=== PATIENT | female | born 1970 | race American Indian/Alaskan Native ===

== ENCOUNTER 2020-05-02 12:03 | Emergency (ER) | payer OTHER ==
--- OUTSIDE RECORDS SUMMARY | 2020-05-02 12:05 | XMS REPORT | Clinical Summary ---
:1970 Author Organization [facility] Address [address] [place] [address] Care Team Providers Name Role Phone Anand Khun MD Primary Care Provider Allergies Active Allergy Reactions Severity Noted Date Comments Nsaids (Non-Steroidal Hives 09/23/2019 Pt sta jaelyn she cannot have Anti-Inflammatory Drug) any NSAIDs because of lovenox. Medications Medication Sig Dispensed Refills Start Date End Date Status buPROPion XL Take 450 mg by 0 Ac tive (WELLBUTRIN XL) 300 mouth daily. MG 24 hr tablet topiramate (TOPAMAX) Take 200 mg by 0 Active 200 MG tablet mouth 2 (two) times a day. Extended release citalopram (CeleXA) Take 10 mg by 0 Active 10 MG tablet mouth daily. tiZANidine (ZANAFLEX) Take 2 mg by 0 Active 2 MG tablet mouth every 8 (eight) hours as needed for muscle spasms. butalbital-acetaminop Take 1 tablet 0 Active hen-caff (FIORICET, by mouth every ESGIC) 50-325-40 mg 6 (six) hours per tablet as needed for headaches. erenumab-aooe Inject 140 mg 0 Ac tive (Aimovig under the skin Autoinjector) 140 every 28 days. mg/mL syringe enoxaparin (LOVENOX) Inject under 0 Active 150 mg/mL injection the skin every 12 (twelve) hours. ondansetron ODT Take 1 tablet 10 tablet 0 09/23/2019 Active (Zofran ODT) 4 MG (4 mg total) by disintegrating tablet mouth every 12 (twelve) hours as needed for nausea or vomiting. butalbitaL-acetaminop Take 1 capsule 12 capsule 0 09/23/2019 0 09/30/2019 -caf-cod (Fioricet by mouth every with Codeine) 6 (six) hours 01-345-17-30 mg as needed capsuleIndications: (headache) for acute pain up to 7 days .acute pain. Active Problems Problem Noted Date Acute deep vein thrombosis (DVT) of popliteal vein 04/2018 Pulmonary embolus 05/15/2017 Encounters Date Type Specialty Care Team Description 03/23/2020 Hospital Encounter Radiology Randall Garland, Encounter for MD screening mammogram Juan, for malignant Solange, neoplasm of lily ast FOREIGN DIPLOMAT 03/23/2020 Travel 03/10/2020 Travel 03/10/2020 Transcribe Orders Access Juan, Encounter for Solange, screening mammo gram FOREIGN DIPLOMAT for malignant neoplasm of lily ast (Primary Dx) 09/23/2019 - Emergency Emergency Medicine Thacker, Boi Intractab le episodic 09/24/2019 MD Clarice headache, unspecified hea dache type (Primary D x) 09/23/2019 Travel after 05/02/2019 Surgical History Surgery Date Site/Laterality Comments GASTRIC BYPASS TONSILLECTOMY Medical History Medical History Date Comments Depression Anxiety DVT (deep venous thrombosis) (HCC) Migraines PE (pulmonary thromboembolism) ([facility]) Social History Tobacco Use Types Packs/Day Years Used Date Light Tobacco Smoker Smokeless Tobacco: Never Used Alcohol Use Drinks/Week oz/Week Comments No Sex Assigned at Date Recorded Not on file Job Start Date Occupation Industry Not on file Not on file Not on file Last Filed Vital Signs Vital Sign Reading Time Taken Comments Blood Pressure 107/65 09/24/2019 12:01 AM CDT Pulse 74 09/24/2019 12:01 AM CDT Temperature 37.1 C (98.8 F) 09/24/2019 12:01 AM CDT Respiratory Rate 16 09/24/2019 12:01 AM CDT Oxygen Saturation 98% 09/24/2019 12:01 AM CDT Inhaled Oxygen Concentration - - Weight 103 kg (228 lb) 09/23/2019 9:19 PM CDT Height 175.3 cm (5' 9") 09/23/2019 9:19 PM CDT Body Mass Index 33.67 09/23/2019 9:19 PM CDT Plan of Treatment Health Maintenance Due Date Last Done Comments COVID-19 VACCINE (#1) 1986 CERVICAL CANCER SCREENING 12/09/1991 INFLUENZA VACCINE 12/05/2019 Procedures Procedure Name Priority Date/Time Associated Comments Diagnosis MAMMO BREAST SCREEN Routine 03/23/2020 5:37 Encounter for Res ults for this TOMOSYNTHESIS BILATERAL PM [employer] screening proc edure are in mammogram for the results malignant neoplasm section. of breast CT HEAD WO CONTRAST STAT 09/23/2019 10:36 Resu lts for this PM CDT procedure are i n the results section. ESTIMATED GFR STAT 09/23/2019 9:50 Results fo r this PM CDT procedure are i n the results section. HCG QUALITATIVE, SERUM Routine 09/23/2019 9:50 R esults for this SCREEN PM CDT procedure are i n the results section. PARTIAL THROMBOPLASTIN STAT 09/23/2019 9:50 R esults for this TIME (PTT) PM CDT procedure are i n the results section. PROTHROMBIN TIME WITH STAT 09/23/2019 9:50 Re sults for this INR PM CDT procedure are i n the results section. COMPREHENSIVE METABOLIC STAT 09/23/2019 9:50 Results for this PANEL PM CDT procedure are i n the results section. HC COMPLETE BLD COUNT Routine 09/23/2019 9:50 Re sults for this W/AUTO DIFF PM CDT procedure are i n the results section. after 05/02/2019 Results Mammo Breast Screen Tomosynthesis Bilateral (03/23/2020 5:37 PM [employer]) Specimen Impressions Performed At There is no mammographic evidence of mal ignancy. [facility] Continued monitoring of the clinical examination and annual mammography in 1 year is recommended. BI-RADS Category 1: Negative Workstation Name: [id number] A NEGATIVE X-RAY REPORT SHOULD NOT DELAY BIOPSY IF A D OMINANT OR CLINICALLY SUSPICIOUS MASS IS PRESENT. NOT ALL CANCERS ARE IDENTIFIED BY X-RAY. Narrative Performed At PROCEDURE: [facility] Bilateral Tomosynthesis Screening HISTORY: Patient is 49 years old and is seen for screening. The patient has the following family history of breast cancer: paternal aunt, breast cancer. The patient has no current palpa ble breast complaints. FILMS COMPARED: The present examination has been compared to a prior [facility] dated 01/12/2019. MAMMOGRAM FINDINGS: The breasts are almost entirely fat. No suspicious masses, calcifications or other abnormal ities are seen. There are no significant changes from the prior study. Procedure Note Interface, Radiology Results Incoming - 03/23/2020 6:31 PM [employer] PROCEDURE: Bilateral Tomosynthesis Screening HISTORY: Patient is 49 years old and is seen for screening. The patient has the following family history of breast cancer: paternal aunt, breast cancer. The patient has no current palpable breast complaints. FILMS COMPARED: The present examination has been compare d to a prior imaging study dated 01/12/2019. MAMMOGRAM FINDINGS: The breasts are almost entirely fat. No suspicious masses, calcifications or other abnormalities are seen. There are no significant changes from the prior study. IMPRESSION: There is no mammographic evidence of mal ignancy. Continued monitoring of the clinical exa mination and annual mammography in 1 year is recommended. BI-RADS Category 1: Negative Workstation Name: [id number] A NEGATIVE X-RAY REPORT SHOULD NOT DELAY BIOPSY IF A DOMINANT OR CLINICALLY SUSPICIOUS MASS IS PRESENT. NOT ALL CANCERS ARE IDENTIFIED BY X-RAY. Performing Organization Address City/State/ZIP Code Phon e Number [facility] [id number] [place] [address] CT Head Wo Contrast (09/23/2019 10:36 PM CDT) Specimen Narrative Performed At EXAM: CT HEAD WO CONTRAST [facility] CLINICAL HISTORY: headache patient on lovenox TECHNIQUE: Noncontrast enhanced images of the brain we re obtained from the skull base to the vertex. Both soft tissue and bon e reconstruction algorithms were performed. CT scans are performed using radiation dose reduction techniques (iterative reconstruction and/or automated exposure co ntrol). Technical factors are evaluated and adjusted to ensure appropria te moderation of exposure. Automated dose project management consultant nology is applied to adjust radiation exposure while achievi ng a diagnostic quality image. COMPARISON: CT head 03/20/2012. FINDINGS: The davey-white matter differentiation is preserved and without evidence of acute territorial infarction. There is no evidence for acute intracranial hemorrhage , mass, mass effect, hydrocephalus, or extra-axial fl uid collection. The ventricles and sulci are appropriate for age. Orbits are unremarkable. Mild mucosal thickening in th e left sphenoid sinus dependently is noted. Mastoid air cells are norm ally pneumatized. Osseous structures are intact. IMPRESSION: No CT evidence for acute intracranial ab normality. [id number] Procedure Note Hm Interface, Radiology Results Incoming - 09/23/2019 10:45 PM CDT EXAM: CT HEAD WO CONTRAST CLINICAL HISTORY: headache patient on l ovenox TECHNIQUE: Noncontrast enhanced images o f the brain were obtained from the skull base to the vertex. Both soft tissue and bone reconstruction algorithms were performed. CT scans are performed using radiation d ose reduction techniques (iterative reconstruction and/or automated exposure control). Technical factors are evaluated and adjusted to ensure appropriate moderation of exposure. Automated dose project management consultant nology is applied to adjust radiation exposure while achieving a diagnostic quality image. COMPARISON: CT head 03/20/2012. FINDINGS: The davey-white matter differentiation is preserved and without evidence of acute territorial infarction. There is no evidence for acute intracran ial hemorrhage, mass, mass effect, hydrocephalus, or extra-axial fluid collection. The ventricles and sulci are appropriate for age. Orbits are unremarkable. Mild mucosal th ickening in the left sphenoid sinus dependently is noted. Mastoid air cells are normally pneumatized. Osseous structures are intact. IMPRESSION: No CT evidence for acute intracranial ab normality. [id number] Performing Organization Address City/[facility] Code Phon e Number [facility] [id number] [place] [address] Estimated GFR (09/23/2019 9:50 PM CDT) Pathologist [facility] Estimated GFR 77 mL/min/1.73 [facility] Comment: [address] Catergory Units Interpretation G1 >=90 Normal or high G2 60-89 Mildly decreased G3a 45-59 Mildly to moderately decreas ed G3b 30-44 Moderately to severely decre ased G4 15-29 Severely decreased G5 <15 Kidney failure The eGFR was calculated using the Chronic Kidney Disea se Epidemiology Collaboration (CKD-EPI) equation. Interpretation is based on recommendations of the National Kidney Foundation-Kidney Disease Outcomes Evaristo lity Initiative (NKF-KDOQI) published in 2014. Specimen Performing Organization Address City/State/ZIP Code Phon e Number [facility] DEPARTMENT OF PATHOLOGY AND [address] [place], [place] [address] [facility]IC [facility]IC[facility] [address] [address] [place], [place] [address] Partial thromboplastin time, activated (09/23/2019 9:50 PM CDT) PTT 32.8 23.0 - 36.0 [facility] Comment: [facility] PTT therapeutic range for unfractionated heparin is 61.0-112.0 seconds which corresponds to Anti-Xa 0.3-0.7 U/ml. Specimen Blood Performing Organization Address City/State/ZIP Code Phon e Number [facility] DEPARTMENT OF PATHOLOGY AND [id number] [place] [address] [facility] [address] [place], [place] [address] Prothrombin time with INR (09/23/2019 9:50 PM CDT) [facility] Prothrombin time 13.5 11.5 - 14.5 [facility] INR 1.0 [place] Comment: [facility] Normalized Ratio (INR) is a therapeu [facility] monitoring tool for patients who are stable on oral anticoagulant therapy. An INR of 2.0-3.0 is suggested for deep vein thrombosis/pulmonary embolism. Specimen Blood Performing Organization Address City/[facility] Phon e Number [facility] DEPARTMENT OF PATHOLOGY AND [address] [address] [facility] [place]. [place] [address] [address] [facility] [address] [place], [place] [address] CBC with platelet and differential (09/23/2019 9:50 PM CDT) [facility] WBC 7.18 4.50 - 11.00 [facility] k/uL [facility] RBC 4.45 4.20 - 5.50 m/uL [facility] HGB 13.1 12.0 - 16.0 g/dL [facility] HCT 39.3 37.0 - 47.0 % [facility] MCV 88.3 82.0 - 100.0 fL [facility] MCH 29.4 27.0 - 34.0 pg [facility] MCHC 33.3 31.0 - 37.0 g/dL [facility] RDW - SD 45.6 37.0 - 55.0 fL [facility] MPV 10.2 8.8 - 13.2 fL [facility] Platelet count 341 150 - 400 k/uL [facility] Neutrophils 50.2 39.0 - 69.0 % [facility] Lymphocytes 38.7 25.0 - 45.0 % [facility] Monocytes 6.0 0.0 - 10.0 % [facility] Eosinophils 4.2 0.0 - 5.0 % [facility] Basophils 0.6 0.0 - 1.0 % [facility] Immature granulocytes 0.3 0.0 - 1.0 % [facility] Specimen Blood Performing Organization Address City/[facility]/ZIP Code Phon e Number [facility] DEPARTMENT OF PATHOLOGY AND [address] [address] [place] [address] GENOMIC MEDICINE [facility] [address] [place], [place] [address] hCG qualitative, serum screen (09/23/2019 9:50 PM CDT) Pathologist [facility] hCG qualitative, NegativeComment: [facility] serum Sensitivity of HCG [facility] test: 25 mIU/mL Specimen Blood Performing Organization Address City/[facility] Phon e Number [facility] DEPARTMENT OF PATHOLOGY AND [address] [facility] [address] [facility] [address] [place], [place] [address] Comprehensive metabolic panel (09/23/2019 9:50 PM CDT) [facility] Sodium 139 135 - 148 [facility] mEq/L [facility] Potassium 4.2 3.5 - 5.0 [facility] mEq/L [facility] Chloride 103 99 - 109 mEq/L [facility] CO2 20 (L) 24 - 31 mEq/L [facility] Anion gap 16@ANIO (H) 7 - 15 mEq/L [facility] BUN 9 8 - 24 mg/dL [facility] Creatinine 0.88 0.50 - 0.90 [facility] mg/dL [facility] Glucose 138 (H) 65 - 99 mg/dL [facility] Calcium 9.2 8.6 - 10.6 [facility] mg/dL [facility] Protein 7.4 6.3 - 8.2 g/dL [facility] Albumin 3.6 3.5 - 5.0 g/dL [facility] A/G ratio 0.9 0.7 - 3.8 [facility] Alkaline phosphatase 62 30 - 115 U/L [facility] AST 18 15 - 46 U/L [facility] ALT 14 10 - 55 U/L [facility] Total bilirubin <0.3 0.2 - 1.2 [facility] mg/dL [facility] Specimen Blood Performing Organization Address City/State/ZIP Code Phon e Number [facility] DEPARTMENT OF PATHOLOGY AND [address] [place] 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
--- OUTSIDE RECORDS SUMMARY | 2020-05-02 12:06 | XMS REPORT | Continuity of Care Document ---
:1970 Author Organization [facility] t Address [address] [place] [address] Care Team Providers Name Role Phone Bam AIKEN, K. Primary Care Physician Gill AIKEN Attending Clinician Juan [employer] Attending Clinician Clarice Thacker MD Attending Clinician Payers Payer Name Policy Type Policy Effective Date Expiration Date Sour ce Number [facility] [id number] 2017 [place] CHOICE 00:00:00 [facility] MARKETPLACExxxxxx [id number] 2017-Pr esentExchange Problems Condition Condition Condition Status Onset Resolution Last Treating Co mments Source Name Details Category Date Date Treatment Clinician Date Acute deep Acute deep Disease Active [place] vein vein 1-12 [facility] thrombosis thrombosis 00:00: st (DVT) of (DVT) of 00 popliteal popliteal vein vein Pulmonary Pulmonary Disease Active Omari ston embolus embolus 1-10 [facility] 00:00: st 00 Allergies, Adverse Reactions, Alerts Allergy Allergy Status Severity Reaction(s) Onset Inactive Treating Comm ents Source Name Type Date Date Clinician Nsaids Propensi Active Hives Pt states [place] (Non-Kiran ty to 5-20 she [facility] roidal adverse 00:00: cannot st Anti-Inf reaction 00 have any lammator s to NSAIDs y Drug) drug because of lovenox. Social History Social Habit Start Date Stop Date Quantity Comments Source Sex Assigned At [facility] ethodist Tobacco use and 2019-09-23 2019-09-23 Never used [facility] ethodist exposure 00:00:00 00:00:00 Alcohol intake 2019-09-23 2019-09-23 Current [facility] thodist 00:00:00 00:00:00 non-drinker of alcohol (finding) Smoking Status Start Date Stop Date Source Light tobacco smoker 2019-09-23 00:00:00 [place] [facility] Medications Ordered Filled Start Stop Current Ordering Indication Dosage Frequency Signature Comments Components Source Medication Medication Date Date Medication? Clinician (SIG) Name Name erenumab-ao 2019- Yes 140mg Q28D Inject 140 [place] oe (Aimovig 5-20 mg under Meth ansley Autoinjecto 21:31: the skin st r) 140 12 every 28 mg/mL days. syringe enoxaparin 2020-0 Yes Q12H Inject [place] (LOVENOX) 5-20 under the Metho di 150 mg/mL 21:31: skin every st injection 12 12 (twelve) hours. ondansetron 2019-0 Yes 4mg Q12H Take 1 [place] ODT (Zofran 5-20 tablet (4 Met h[facility] ODT) 4 MG 00:00: mg total) st disintegrat 00 by mouth ing tablet every 12 (twelve) hours as needed for nausea or vomiting. butalbitaL- 2020- No acute pain 1{capsu Q6H Take 1 [place] acetaminop- 5-20 05-27 le} capsule by esequiel caf-cod 00:00: 23:[address] (Fioricet 00 :00 every 6 with (six) Codeine) hours as 50-300-40-3 needed 0 mg (headache) capsule for up to 7 days .acute pain. buPROPion 2018-0 Yes 450mg QD Take 450 [place] ston XL 1-12 mg by [facility] (WELLBUTRIN 17:52: mouth st XL) 300 MG 53 daily. 24 hr tablet topiramate 2018-0 Yes 200mg Q.5D Take 200 [place] (TOPAMAX) 1-12 mg by [facility] 200 MG 17:52: mouth 2 st tablet 53 (two) times a day. Extended release citalopram 2017- Yes 10mg QD Take 10 mg [place] (CeleXA) 10 1-12 by mouth Meth ansley MG tablet 17:52: daily. st 53 tiZANidine 2018-0 Yes 2mg Q8H Take 2 mg [place] (ZANAFLEX) 1-12 by mouth Metho di 2 MG tablet 17:52: every 8 st 53 (eight) hours as needed for muscle spasms. butalbital- 2018-0 Yes 1{tbl} Q6H Take 1 [place] acetaminoph 1-12 tablet by Met hodi en-caff 17:52: mouth st (FIORICET, 53 every 6 ESGIC) (six) 50-325-40 hours as mg per needed for tablet headaches. Vital Signs Vital Name Observation Time Observation Value Comments Source Systolic blood 2019-09-24 00:01:00 107 mm[Hg] Lauro Prescott pressure Diastolic blood 2019-09-24 00:01:00 65 mm[Hg] Rich Prescott pressure Heart rate 2019-09-24 00:01:00 74 /min Eric Prescott Body temperature 2019-09-24 00:01:00 37.11 Puja Sarwat Prescott Respiratory rate 2019-09-24 00:01:00 16 /min Sarwat Prescott Oxygen saturation in 2019-09-24 00:01:00 98 /min Eric Prescott Arterial blood by Pulse oximetry Body height 2019-09-23 21:19:00 175.3 cm Eric Prescott Body weight 2019-09-23 21:19:00 103.42 kg Eric Prescott BMI 2019-09-23 21:19:00 33.67 kg/m2 Eric Prescott Procedures Procedure Date / Time Performing Clinician Source Performed MAMMO BREAST SCREEN 2020-03-23 17:37:41 Bruha, Solange Eric Prescott TOMOSYNTHESIS BILATERAL CT HEAD WO CONTRAST 2019-09-23 22:36:52 Dk Stewart HC COMPLETE BLD COUNT 2019-09-23 21:50:00 Dk Stewart W/AUTO DIFF COMPREHENSIVE METABOLIC 2019-09-23 21:50:00 Dk Stewart PANEL PROTHROMBIN TIME WITH INR 2019-09-23 21:50:00 Dk Stewart PARTIAL THROMBOPLASTIN 2019-09-23 21:50:00 Terry, Dk S. [place] [facility] TIME (PTT) HCG QUALITATIVE, SERUM 2019-09-23 21:50:00 Dk [place] [facility] SCREEN ESTIMATED GFR 2019-09-23 21:50:00 Dk Stewart Eric Meth odist Plan of Care Planned Activity Planned Date Details Comments Source Future Scheduled 2019-12-05 INFLUENZA VACCINE [place] [facility] Test 00:00:00 [code = INFLUENZA VACCINE] Future Scheduled 1991-12-09 Screening for [place] [facility] thodist Test 00:00:00 malignant neoplasm of cervix (procedure) [code = 146138944] Future Scheduled 1986 COVID-19 VACCINE [place] [facility] Test 00:00:00 (#1) [code = COVID-19 VACCINE (#1)] Encounters Start End Encounter Admission Attending Care Care Encounter Source Date/Time Date/Time Type Type Clinicians Facility Department ID 2020-03-23 2020-03-23 Outpatient ROBBY POTTER [facility] [id number] [place] 00:00:00 00:00:[address] 2019-09-23 2019-09-24 Emergency THACKER, BOI [facility] [id number] [place] 00:00:00 00:00:[address] Results Test Description Test Time Test Comments Results Result [facility] e Comments Mammo Breast 2020-03-06 There is no [place] Screen 8 mammographic Y[facility]idi Tomosynthesis 18:30:52 evidence of Bilateral malignancy. Continued monitoring of the clinical examination and annual mammography in 1 year is recommended. BI-RADS Category 1:Negative Workstation Name: [id number] A NEGATIVE X-RAY REPORT SHOULD NOT DELAY BIOPSY IF A DOMINANT OR CLINICALLY SUSPICIOUS MASS IS PRESENT. NOT ALL CANCERS ARE IDENTIFIED BY X-RAY. [facility], Radiology Results - 03/23/2020 6:31 PM CSTPROCEDURE:Bilater al Tomosynthesis Screening HISTORY:Patient is 49 years old and is seen for screening. The patient has the following family history of breast cancer: paternal aunt, breast cancer. The patient has no current palpable breast complaints. FILMS COMPARED:The present examination has been compared to a prior imaging study dated 01/12/2019. MAMMOGRAM FINDINGS:The breasts are almost entirely fat. No suspicious masses, calcifications or other abnormalities are seen. There are no significant changes from the prior study. IMPRESSION:There is no mammographic evidence of malignancy. Continued monitoring of the clinical examination and annual mammography in 1 year is recommended. BI-RADS Category 1:Negative Workstation Name: [id number] A NEGATIVE X-RAY REPORT SHOULD NOT DELAY BIOPSY IF A DOMINANT OR CLINICALLY SUSPICIOUS MASS IS PRESENT. NOT ALL CANCERS ARE IDENTIFIED BY X-RAY. CT Head Wo 2019-09-05 [facility] Contrast 0 Radiology Results Methodi 22:42:29 Incoming - 09/23/2019 10:45 PM CDTEXAM: CT HEAD WO CONTRASTCLINICAL HISTORY: headache patient on lovenoxTECHNIQUE: Noncontrast enhanced images of the brain were obtained from the skull base to the vertex. Both soft tissue and bone reconstruction algorithms were performed. CT scans are performed using radiation dose reduction techniques (iterative reconstruction and/or automated exposure control). Technical factors are evaluated and adjusted to ensure appropriate moderation of exposure. Automated dose management technology is applied to adjust radiation exposure while achieving a diagnostic quality image.COMPARISON: CT head 03/20/2012.FINDINGS: The davey-white matter differentiation is preserved and without evidence of acute territorial infarction. There is no evidence for acute intracranial hemorrhage, mass, mass effect, hydrocephalus, or extra-axial fluid collection.The ventricles and sulci are appropriate for age.Orbits are unremarkable. Mild mucosal thickening in the left sphenoid sinus dependently is noted. Mastoid air cells are normally pneumatized. Osseous structures are intact.IMPRESSION:No CT evidence for acute intracranial abnormality.[facility]-[id number] Comprehensive metabolic panel 2019-09-23 22:35:41 Test Item Value Reference Range Interpretation Comme nts Sodium (test code = 2951-2) 139 135- 148 mEq/L Potassium (test code = 2823-3) 4.2 3.5- 5.0 mEq/L Chloride (test code = 2075-0) 103 99- 109 mEq/L CO2 (test code = 2027-9) 20 24- 31 mEq/L L Anion gap (test code = 78021-2) 16@ANIO 7- 15 mEq/L H BUN (test code = 3094-0) 9 mg/dL 8-24 Creatinine (test code = 2160-0) 0.88 mg/dL 0.5-0.9 Glucose (test code = 2345-7) 138 mg/dL 65-99 H Calcium (test code = 00734-6) 9.2 mg/dL 8.6-10.6 Protein (test code = 2885-2) 7.4 g/dL 6.3-8.2 Albumin (test code = 1751-7) 3.6 g/dL 3.5-5 A/G ratio (test code = 1759-0) 0.9 0.7-3.8 Alkaline phosphatase (test code = 6768-6) 62 U/L 30-115 AST (test code = 1920-8) 18 U/L 15-46 ALT (test code = 1742-6) 14 U/L 10-55 Total bilirubin (test code = 1974-2) <0.3 0.2-1.2 Lab Interpretation (test code = 48636-3) Abnormal Reyes MethodistEstimated [id number] 22:35:41 Test Item Value Reference Range Interpretation Comments Estimated GFR (test 77 mL/min/1.73 m2 Caterg ory Units code = 5488) InterpretationG 1 >=90 Normal or highG2 60-89 Mildly sjrlgsujuZ5q 45-59 Mildly to mode rately mkindsdmiX4r 30-44 Moderately to severely decreasedG4 15-29 Severely decre asedG5 <15 Kidn ey failureThe eGFR was calculated usin g the Chronic Kidney Disease Epidemiology Co llaboration (CKD-EPI) equat ion. Interpretation is based on recommendations of the National Kidney Foundation-Kidn ey Disease Outcomes Qualit y Initiative (NKF-KDOQI) pub lished in 2014. Reyes MethodistPartial thromboplastin time, [id number] 22:22:28 Test Item Value Reference Range Interpretation Comments PTT (test code = 32.8 23.0- 36.0 sec PTT thera peutic range for 3173-2) unfractionated heparin is61.0-112.0 se conds which corresponds to Anti-Xa0.3-0.7 U/ml. Reyes MethodistProthrombin time with [id number] 22:22:18 Test Item Value Reference Range Interpretation Comments Prothrombin time (test 13.5 11.5- 14.5 sec code = 5902-2) INR (test code = 1.0 The Interna tional 49829-2) Normalized Rati o (INR) is a therapeutic m onitoring tool for patien ts who are stable on oral anticoagulant t herapy. An INR of 2.0-3.0 is suggested for d eep vein thrombosis/pulm onary embolism. Eric PrescotthCG qualitative, serum [id number] 22:21:03 Test Item Value Reference Range Interpretation Comments hCG qualitative, Negative Sensitivity of HCG test: serum (test code = 25 mIU/mL 8-8) Eric PrescottCBC with platelet and [id number] 22:17:34 Test Item Value Reference Range Interpretation Comments WBC (test code = 75444-9) 7.18 4.50- 11.00 k/uL RBC (test code = 98380-2) 4.45 m/uL 4.2-5.5 HGB (test code = 718-7) 13.1 g/dL 12-16 HCT (test code = 4544-3) 39.3 % 37-47 MCV (test code = 787-2) 88.3 fL 82-100 MCH (test code = 785-6) 29.4 pg 27-34 MCHC (test code = 786-4) 33.3 g/dL 31-37 RDW - SD (test code = 46477-1) 45.6 fL 37-55 MPV (test code = 22537-4) 10.2 fL 8.8-13.2 Platelet count (test code = 341 150- 400 k/uL 22558-0) Neutrophils (test code = 90860-3) 50.2 % 39-69 Lymphocytes (test code = 79569-8) 38.7 % 25-45 Monocytes (test code = 05665-7) 6.0 % 0-10 Eosinophils (test code = 19919-3) 4.2 % 0-5 Basophils (test code = 33805-9) 0.6 % 0-1 Immature granulocytes (test code = 0.3 % 0-1 23721-7) Eric Prescott
[2020-05-02] MEDS ORDERED: HYDROCODONE/APAP 5/325 MG TAB ONE ×2 (12:43→14:01)
--- NOTE | 2020-05-02 12:53 | RAD REPORT ---
EXAM DESCRIPTION: US - Extremity Venous Uni Ltd - 05/02/2020 12:39 pm CLINICAL HISTORY: PAIN, swelling, history of DVT COMPARISON: None. TECHNIQUE: Real-time sonographic evaluation of the left lower extremity deep venous system was perfo rmed. FINDINGS: Normal compressibility, flow augmentation, phasic flow and spontaneous flow are identified in the left lower extremity common femoral, superficial femoral, popliteal and posterior tibial vein s. No intraluminal filling defects seen. IMPRESSION: No DVT in the left lower extremity.
[2020-05-02 14:12] LABS: Absolute Lymphocytes (CBC) 2.1 K/uL (0.7-4.9); Basophils % 0.5 % (0-1.3); Hematocrit 40.4 % (36.0-45.0); Lymphocytes % 28.9 % (15.3-44.8); MPV 8.1 fL (7.6-11.3); RBC Red Blood Cell Count 4.46 M/uL (3.86-4.86)
--- NOTE | 2020-05-02 14:56 | EDPHYS ---
Physician Documentation [facility] Name: Claudia Parkinson Age: 49 yrs Sex: Female : 1970 Arrival Date: 05/02/2020 Time: 12:05 Bed 14 Private MD: ED Physician Heraclio Anna HPI: 05/02 12:58 This 49 yrs old Other Female presents to ER via EMS with complaints of Leg Pain. pm1 12:58 The complaints affect the proximal and lateral aspect of left calf. Context: The pm1 problem was sustained at an unknown site, resulted from an unknown cause, the patient can fully bear weight, the patient is able to ambulate, Problem is a result from a previous injury: No. Onset: The symptoms/episode began/occurred 3 week(s) ago. Modifying factors: The symptoms are alleviated by nothing. the symptoms are aggravated by nothing. Associated signs and symptoms: Pertinent negatives calf tenderness, numbness, tingling, shortness of breath, chest pain. Severity of symptoms: in the emergency department the symptoms are unchanged. Patient diagnosed with superficial blood clot to proximal lateral left lower leg 2-3 weeks ago with U/S. Patient had a DVT 2017 and has been taking lovenox sq since then. Her dosage was cut in half but resumed full dosage 2-3 weeks ago due to superficial blood clot. Historical: - Allergies: 12:09 No Known Allergies; em - PMHx: 12:09 DVT; PE; em - PSHx: 12:09 gastric sleeve; em - Immunization history:: Adult Immunizations up to date. - Social history:: Smoking status: Patient denies any tobacco usage or history of. ROS: 12:58 Constitutional: Negative for fever, chills, and weight loss, Cardiovascular: Negative pm1 for chest pain, palpitations, and edema, Respiratory: Negative for shortness of breath, cough, wheezing, and pleuritic chest pain, Abdomen/GI: Negative for abdominal pain, nausea, vomiting, diarrhea, and constipation, Back: Negative for injury and pain. 12:58 Skin: Negative for injury, rash, and discoloration, Neuro: Negative for headache, weakness, numbness, tingling, and seizure. 12:58 MS/extremity: Positive for pain, of the proximal lateral aspect of left calf, Negative for injury or acute deformity, decreased range of motion, deformity. Exam: 12:58 Constitutional: This is a well developed, well nourished patient who is awake, alert, pm1 and in no acute distress. Head/Face: Normocephalic, atraumatic. 12:58 Back: No spinal tenderness. No costovertebral tenderness. Full range of motion. Skin: Warm, dry with normal turgor. Normal color with no rashes, no lesions, and no evidence of cellulitis. 12:58 Cardiovascular: Exam negative for acute changes, Rate: normal, Rhythm: regular, Pulses: no pulse deficits are appreciated. 12:58 Respiratory: Exam negative for acute changes, respiratory distress, shortness of breath. 12:58 Musculoskeletal/extremity: Extremities: grossly normal except: noted in the proximal lateral aspect of left calf: tenderness, There is no evidence of swelling, Pulses: noted to be 2+ in the left popliteal artery and left dorsalis pedis artery, the left foot Sensation intact. 12:58 Neuro: Exam negative for acute changes, Orientation: is normal, Mentation: is normal, Motor: is normal, moves all fours. Vital Signs: 12:05 BP 108 / 80; Pulse 90; Resp 18; Temp 98.4; Pulse Ox 98% on R/A; Weight 104.33 kg; em Height 5 ft. 9 in. (175.26 cm); Pain 6/10; 13:30 BP 109 / 77; Pulse 77; Resp 18; Pulse Ox 99% on R/A; Pain 6/10; em 14:30 BP 110 / 71; Pulse 72; Resp 18; Pulse Ox 98% on R/A; em 12:05 Body Mass Index 33.96 (104.33 kg, 175.26 cm) em MDM: 12:08 Patient medically screened. pm1 14:55 Data reviewed: vital signs. Data interpreted: Pulse oximetry: on room air is 99 %. pm1 Interpretation: normal. Counseling: I had a detailed discussion with the patient and/or guardian regarding: the historical points, exam findings, and any diagnostic results supporting the discharge/admit diagnosis, lab results, radiology results, the need for outpatient follow up, to return to the emergency department if symptoms worsen or persist or if there are any questions or concerns that arise at home. 05/02 13:28 Order name: CBC with Diff; Complete Time: 14:16 pm1 12/28 13:28 Order name: BMP; Complete Time: 14:55 pm1 05/02 12:16 Order name: Extremity Venous Uni Ltd ; Complete Time: 12:58 pm1 Administered Medications: 12:53 Drug: [place] 5 mg-325 mg 1 tabs Route: PO; em 13:40 Follow up: Response: No adverse reaction; No change in condition; RASS: Alert and Calm em (0) 13:49 Drug: [place] 5 mg-325 mg 1 tabs Route: PO; em 15:01 Follow up: Response: No adverse reaction; Marked relief of symptoms; Pain is decreased; em RASS: Alert and Calm (0) Disposition: 15:49 Co-signature as Attending Physician, Heraclio Anna MD. rn Disposition: 05/02/20 14:56 Discharged to Home. Impression: Pain in left lower leg. - Condition is Stable. - Discharge Instructions: Musculoskeletal Pain. - Prescriptions for Tylenol- Codeine #3 300-30 mg Oral Tablet - take 2 tablets by ORAL route every 6 hours As needed; 20 tablet. - Medication Reconciliation Form, Thank You Letter, Antibiotic Education, Prescription Opioid Use form. - Follow up: Emergency Department; When: As needed; Reason: Worsening of condition. Follow up: Private Physician; When: 2 - 3 days; Reason: Recheck today's complaints, Continuance of care, Re-evaluation by your physician. - Problem is new. - Symptoms have improved. Signatures: Dispatcher [employer] Sreedhar Horne RN RN em Nieto, Roman, MD MD rn Marinas, Patrick, TELECOMMUNICATIONS FIELD TECHNICIAN TELECOMMUNICATIONS FIELD TECHNICIAN pm1 Corrections: (The following items were deleted from the chart) 15:39 14:56 05/02/2020 14:56 Discharged to Home. Impression: Pain in left lower leg. em Condition is Stable. Forms are Medication Reconciliation Form, Thank You Letter, Antibiotic Education, Prescription Opioid Use. Follow up: Emergency Department; When: As needed; Reason: Worsening of condition. Follow up: Private Physician; When: 2 - 3 days; Reason: Recheck today's complaints, Continuance of care, Re-evaluation by your physician. Problem is new. Symptoms have improved. pm1 18:01 12:58 Associated signs and symptoms: Pertinent negatives calf tenderness, numbness, pm1 tingling, pm1
--- NOTE | 2020-05-02 14:56 | ER ---
Nurse's Notes [facility] Name: Claudia Parkinson Age: 49 yrs Sex: Female : 1970 Arrival Date: 05/02/2020 Time: 12:05 Bed 14 Private MD: Diagnosis: Pain in left lower leg Presentation: 05/02 12:05 Chief complaint: EMS states: called out for left leg burning/numbness around rand[place], hx em of DVT and PE, being treated for DVT 2 weeks ago, currently taking Lovenox BID, denies chest pain or SOB, was diagnosed in [place]. Coronavirus screen: Client denies travel out of the [place] in the last 14 days. Ebola Screen: Patient negative for fever greater than or equal to 101.5 degrees Fahrenheit, and additional compatible Ebola Virus Disease symptoms Patient denies exposure to infectious person. Patient denies travel to an Ebola-affected area in the 21 days before illness onset. No symptoms or risks identified at this time. Initial Sepsis Screen: Does the patient meet any 2 criteria? No. Patient's initial sepsis screen is negative. Does the patient have a suspected source of infection? No. Patient's initial sepsis screen is negative. Risk Assessment: Do you want to hurt yourself or someone else? Patient reports no desire to harm self or others. Onset of symptoms was May 02, 2020. 12:05 Method Of Arrival: EMS: [facility] em 12:05 Acuity: JC 3 em Historical: - Allergies: 12:09 No Known Allergies; em - PMHx: 12:09 DVT; PE; em - PSHx: 12:09 gastric sleeve; em - Immunization history:: Adult Immunizations up to date. - Social history:: Smoking status: Patient denies any tobacco usage or history of. Screenin:05 Abuse screen: Denies threats or abuse. Nutritional screening: No deficits noted. em Tuberculosis screening: No symptoms or risk factors identified. Fall Risk None identified. Assessment: 12:05 General: Appears in no apparent distress. comfortable, Behavior is calm, cooperative, em appropriate for age. Pain: Complains of pain in left leg Pain currently is 6 out of 10 on a pain scale. Neuro: Level of Consciousness is awake, alert, obeys commands, Oriented to person, place, time, situation, Appropriate for age. Cardiovascular: Capillary refill < 3 seconds Patient's skin is warm and dry. Respiratory: Airway is patent Respiratory effort is even, unlabored, Respiratory pattern is regular, symmetrical, Denies shortness of breath. GI: Patient currently denies nausea, vomiting. Derm: Skin is intact, is healthy with good turgor, Skin is pink, warm \T\ dry. Musculoskeletal: Capillary refill < 3 seconds, Range of motion: intact in all extremities. 13:12 Reassessment: Patient appears in no apparent distress at this time. Patient and/or em family updated on plan of care and expected duration. Pain level reassessed. Patient is alert, oriented x 3, equal unlabored respirations, skin warm/dry/pink. 13:38 Reassessment: Patient appears in no apparent distress at this time. Patient and/or em family updated on plan of care and expected duration. Pain level reassessed. Patient is alert, oriented x 3, equal unlabored respirations, skin warm/dry/pink. pain unchanged, provider notified. 14:30 Reassessment: Patient appears in no apparent distress at this time. Patient and/or em family updated on plan of care and expected duration. Pain level reassessed. Patient is alert, oriented x 3, equal unlabored respirations, skin warm/dry/pink. rates pain 2/10 Patient states feeling better. Vital Signs: 12:05 BP 108 / 80; Pulse 90; Resp 18; Temp 98.4; Pulse Ox 98% on R/A; Weight 104.33 kg; em Height 5 ft. 9 in. (175.26 cm); Pain 6/10; 13:30 BP 109 / 77; Pulse 77; Resp 18; Pulse Ox 99% on R/A; Pain 6/10; em 14:30 BP 110 / 71; Pulse 72; Resp 18; Pulse Ox 98% on R/A; em 12:05 Body Mass Index 33.96 (104.33 kg, 175.26 cm) em ED Course: 12:05 Patient arrived in ED. em 12:05 Patient has correct armband on for positive identification. Bed in low position. Call em light in reach. Side rails up X2. Pulse ox on. NIBP on. 12:08 Mike Zelaya NP is PHCP. pm1 12:08 Heraclio Anna MD is Attending Physician. pm1 12:08 Triage completed. em 12:09 Arm band placed on. em 12:10 Sreedhar Ortiz, RN is Primary Nurse. em 12:37 Extremity Venous Uni [employer] US In Process Unspecified. EDMS 13:50 Initial lab(s) drawn, by me, sent to lab. Inserted saline lock: 20 gauge in right em antecubital area, using aseptic technique. Blood collected. 15:39 No provider procedures requiring assistance completed. IV discontinued, intact, em bleeding controlled, No redness/swelling at site. Pressure dressing applied. Administered Medications: 12:53 Drug: [place] 5 mg-325 mg 1 tabs Route: PO; em 13:40 Follow up: Response: No adverse reaction; No change in condition; RASS: Alert and Calm em (0) 13:49 Drug: [place] 5 mg-325 mg 1 tabs Route: PO; em 15:01 Follow up: Response: No adverse reaction; Marked relief of symptoms; Pain is decreased; em RASS: Alert and Calm (0) Outcome: 14:56 Discharge ordered by MD. pm1 15:39 Discharged to home ambulatory. em 15:39 Condition: stable 15:39 Discharge instructions given to patient, Instructed on discharge instructions, follow up and referral plans. medication usage, Demonstrated understanding of instructions, follow-up care, medications, Prescriptions given X 1. 15:39 Patient left the ED. em Signatures: Dispatcher [employer] Sreedhar Horne, RN RN em Mike Zelaya, TIFFANIE SKEIN [employer] pm1 Corrections: (The following items were deleted from the chart) 12:10 12:05 Chief complaint: EMS states: called out for left sided leg burning/numbness, hx em of DVT and PE, being treated for DVT 2 weeks ago, currently taking Lovenox BID, denies chest pain or SOB, was diagnosed in [place] em
[2020-05-02 15:45] VITALS: TEMP 98.4
[2020-05-02 15:47] VITALS: BP 110/71; O2SAT 98
== END 2020-05-02 15:39 | disposition home or self-care (01) ==
LOC: ER 12:03
DX: M79.662 Pain in left lower leg (principal); Z86.718 Personal history of other venous thrombosis and embolism; Z79.01 Long term (current) use of anticoagulants; Z98.84 Bariatric surgery status
CPT/HCPCS: 36415; 80048; 85025; 93971; 99284